=== PATIENT | female | born 1955 | race Caucasian/White ===

== ENCOUNTER 2017-08-06 09:59 | Day surgery (SDC) | payer OTHER ==
[2017-08-06] MEDS ORDERED: PROPOFOL 40 ML (11:05)
== END 2017-08-06 16:51 | disposition home or self-care (01) ==
LOC: GIL 09:59
DX: Z12.11 Encounter for screening for malignant neoplasm of colon (principal); K64.8 Other hemorrhoids; E11.9 Type 2 diabetes mellitus without complications; I10 Essential (primary) hypertension
CPT/HCPCS: 45378; 82962